=== PATIENT | female | born 1980 | race Caucasian/White ===

== ENCOUNTER → 2020-10-22 12:35 | Outpatient (BNVA) | payer OTHER, SELFPAY | PROVIDERS: Visit Provider Physician Assistant | DX: S61.313A Laceration without foreign body of left middle finger with damage to nail, initial encounter (principal); W45.8XXA Other foreign body or object entering through skin, initial encounter | CPT/HCPCS: 11760; 12001; 90715; 99203 ==

== ENCOUNTER → 2020-10-24 14:20 | Outpatient (BNVA) | payer OTHER, SELFPAY | PROVIDERS: Visit Provider Physician Assistant | DX: S61.313A Laceration without foreign body of left middle finger with damage to nail, initial encounter (principal); X58.XXXA Exposure to other specified factors, initial encounter | CPT/HCPCS: 99213 ==